=== PATIENT | male | born 1980 | race Caucasian/White ===

== ENCOUNTER 2023-10-15 06:30 | Emergency (ER) | payer BC, OTHER ==
[2023-10-15] MEDS: Sodium Chloride 0.9% 10 ML Syringe FLUSH PRN (07:14)
[2023-10-15] MEDS: Morphine 4 MG/ML Syringe IVPUSH ONE (07:14)
[2023-10-15] MEDS: Aspirin 81 MG Tab.Chew PO ONE (07:14)
[2023-10-15 07:20] LABS: BASOPHILS PERCENT AUTO 0.2 % (0.0-1.0); EOSINOPHILS PERCENT AUTO 1.6 % (1.0-3.0); HEMATOCRIT 43.8 % (40.0-54.0); MEAN CORPUSCULAR HEMOGLOBIN 29.6 pg (27.0-34.0); MEAN CORPUSCULAR HGB CONC 34.2 g/dL (33.0-35.0); MEAN CORPUSCULAR VOLUME 86.4 fL (80-100); MONOCYTES PERCENT AUTO 7.8 % (2-8); NEUTROPHILS PERCENT AUTO 70.4 % (42.2-75.2); PLATELET COUNT,PLT 274 10^3/uL (150-450); RED BLOOD CELL COUNT 5.07 10^6/uL (4.6-6.2); WHITE BLOOD CELL COUNT,WBC 9.3 10^3/uL (5.0-10.0)
[2023-10-15 07:31] LABS: A/G RATIO 1.1; ALANINE AMINOTRANSFERASE,ALT 32 U/L (16-63); ALBUMIN 3.6 g/dL (3.4-5.0); ALKALINE PHOSPHATASE 94 U/L (46-116); ANION GAP 10.8 mEq/L (7-13); ASPARTATE AMNIOTRANSFERASE,AST 24 U/L (15-37); BILIRUBIN TOTAL 0.7 mg/dL (0.2-1.0); BLOOD UREA NITROGEN,BUN 13 mg/dL (7-18); BUN/CREATININE RATIO 11.6 (No establ ref range); CALCIUM 8.7 mg/dL (8.5-10.1); CARBON DIOXIDE,CO2 28 mmol/L (21-32); CHLORIDE,CL 102 mmol/L (98-107); CREATININE 1.12 mg/dL (0.70-1.30); EST CRCL DRUG DOSING (CG) 96.84 mL/min; GLUCOSE RANDOM 165 mg/dL (70-99); POTASSIUM,K 3.8 mmol/L (3.5-5.1); PROTEIN TOTAL,TP 6.9 g/dL (6.4-8.2); SODIUM,NA 137 mmol/L (136-145)
[2023-10-15 07:37] LABS: ESTIMATED GFR 83 mL/min (>=60)
[2023-10-15 08:24] LABS: CORONAVIRUS COVID-19 NAA NEGATIVE (NEGATIVE); INFLUENZA A NAA NEGATIVE (NEGATIVE); INFLUENZA B NAA NEGATIVE (NEGATIVE); RESPIRATORY SYNCYTIAL VIR NAA NEGATIVE (NEGATIVE)
[2023-10-15] MEDS: Ketorolac 30 MG/ML SDV IVPUSH ONE (08:28)
== END 2023-10-15 08:50 | disposition home or self-care (01) ==
LOC: DL.ED 06:30
DX: R07.89 Other chest pain (principal); I10 Essential (primary) hypertension; Z86.16 Personal history of COVID-19; Z79.899 Other long term (current) drug therapy
CPT/HCPCS: 0241U; 36415; 71045; 80053; 84484; 85025; 85379; 93005; 93010; 96374; 96375; 99284; 99285-25; A9270-GY; J1885; J2270; J3490